=== PATIENT | female | born 1945 | race Hispanic/Latino ===

== ENCOUNTER 2017-03-19 19:18 | Emergency (ER) | payer MEDICARE ==
[~2017-03-19] VITALS: Ht 162.6 cm; Wt 71.7 kg
[2017-03-19] MEDS ORDERED: ALBUTEROL/IPRATROPIUM 3 ML NEB INH ONE (20:00)
[2017-03-19] MEDS ORDERED: SIMVASTATIN20 MG PO (20:12)
[2017-03-19] MEDS ORDERED: LISINOPRIL10 MG PO (20:12)
[2017-03-19] MEDS ORDERED: AZITHROMYCIN250 MG PO (22:13)
[2017-03-19] MEDS ORDERED: XYZAL5 MG PO (22:13)
[2017-03-19] MEDS ORDERED: NASONEX17 GM (22:13)
[2017-03-19] MEDS ORDERED: BROMFED DM COU118 ML PO (22:13)
[2017-03-19] MEDS ORDERED: CEFTRIAXONE SOD 1 GM VIAL IV ONE (22:15)
[2017-03-19 23:46] VITALS: BP 166/79
== END 2017-03-19 22:25 | disposition home or self-care (01) ==
LOC: FSED 19:18
DX: R50.9 Fever, unspecified (principal); R05 Cough; J18.9 Pneumonia, unspecified organism; J00 Acute nasopharyngitis [common cold]; J45.909 Unspecified asthma, uncomplicated
CPT/HCPCS: 71020; 80053; 85025; 99284; J0696; 71046